=== PATIENT | male | born 1975 | race African-American/Black ===

== ENCOUNTER 2018-02-12 09:31 | Emergency (ER) | payer OTHER ==
[2018-02-12 10:20] LABS: #Basophils 0.1 thou/uL (0.0-0.2); #Eosinphils 0.1 thou/uL (0.0-0.7); #Monocytes 0.7 thou/uL (0.11-0.59); #Neutrophils 4.2 thou/uL (1.40-6.50); %Basophils 1.3 % (0.0-1.0); %Eosinophils 1.7 % (0.0-10.0); %Monocytes 9.2 % (0.0-10.0); %Neutrophils 59.8 % (42.0-75.0); Hemoglobin 14.8 g/dL (14.0-18.0); Mean Corpuscular Hemoglobin 29.3 pg (27.0-31.0); Mean Corpuscular Volume 88.9 fL (78.0-98.0); Mean Platelet Volume 7.7 fL (7.4-10.4); Platelet Count 231 thou/uL (130-400); RBC Distribution Width 12.5 % (11.5-14.5); Red Blood Cell (RBC) Count 5.05 mill/uL (4.70-6.10)
[2018-02-12] MEDS ORDERED: Metoprolol Tartrate 5 MG/5 ML VIAL ONE (10:23)
[2018-02-12] MEDS ORDERED: Nitroglycerin 2% Ointment 1 INCH/1 GM Packet ONE (10:23)
[2018-02-12 10:36] LABS: Anion Gap 15 mmol/L (10-20); BUN (Urea Nitrogen) 11 mg/dL (8.9-20.6); Calc. Creatinine Clearance 0 mL/min (70-130); Calcium 9.7 mg/dL (7.8-10.44); Carbon Dioxide 28 mmol/L (22-29); Chloride 101 mmol/L (98-107); Estimated GFR-MDRD 88; Glucose 115 mg/dL (70-105); Potassium 3.7 mmol/L (3.5-5.1); Sodium 140 mmol/L (136-145)
[2018-02-12 10:41] LABS: CKMB 1.1 ng/mL (0-6.6); Troponin I Less than 0.010 ng/mL (< 0.028)
[2018-02-12] MEDS ORDERED: Amlodipine 5 MG TAB ONE (10:54)
--- NOTE | 2018-02-12 11:17 | RAD ---
PORTABLE CHEST 1 VIEW: Date: 02/12/18 Time: 0959 hours HISTORY: Chest pain. FINDINGS: The heart size is normal. The lungs are well expanded without focal areas of consolidation, pneumotho races, or pleural effusions. There is no evidence of king pulmonary edema. IMPRESSION: No radiographic evidence of acute cardiopulmonary process. POS: [facility]
== END 2018-02-12 11:08 ==
LOC: MADERS 09:31
DX: I10 Essential (primary) hypertension (principal); F17.210 Nicotine dependence, cigarettes, uncomplicated; Z79.899 Other long term (current) drug therapy
CPT/HCPCS: 71045; 80048; 82553; 83880; 84484; 85025; 93005

== ENCOUNTER 2018-02-12 23:12 | Emergency (ER) | payer OTHER ==
[~2018-02-12 23:12] MED LIST: Sodium Chloride 0.9% 1,000 ML BAG ONE
[2018-02-12] MEDS ORDERED: Nitroglycerin 2% Ointment 1 INCH/1 GM Packet ONE (23:28)
[2018-02-12] MEDS ORDERED: Morphine 4 MG/ML VIAL ONE (23:40)
[2018-02-12 23:43] LABS: #Basophils 0.1 thou/uL (0.0-0.2); #Eosinphils 0.2 thou/uL (0.0-0.7); #Monocytes 0.9 thou/uL (0.11-0.59); #Neutrophils 5.9 thou/uL (1.40-6.50); %Eosinophils 1.5 % (0.0-10.0); %Monocytes 8.7 % (0.0-10.0); %Neutrophils 58.8 % (42.0-75.0); Hemoglobin 15.1 g/dL (14.0-18.0); Mean Corpuscular HGB CONC 33.8 g/dL (32.0-36.0); Mean Corpuscular Hemoglobin 29.8 pg (27.0-31.0); Mean Corpuscular Volume 88.3 fL (78.0-98.0); Mean Platelet Volume 7.9 fL (7.4-10.4); Platelet Count 234 thou/uL (130-400); RBC Distribution Width 12.4 % (11.5-14.5); Red Blood Cell (RBC) Count 5.06 mill/uL (4.70-6.10); White Blood Cell (WBC) Count 10.1 thou/uL (4.8-10.8)
[2018-02-13 00:02] LABS: Anion Gap 16 mmol/L (10-20); BUN (Urea Nitrogen) 9 mg/dL (8.9-20.6); Calc. Creatinine Clearance 0 mL/min (70-130); Carbon Dioxide 29 mmol/L (22-29); Chloride 100 mmol/L (98-107); Estimated GFR-MDRD Greater than 90; Glucose 93 mg/dL (70-105); Potassium 3.9 mmol/L (3.5-5.1); Sodium 141 mmol/L (136-145)
[2018-02-13 00:06] LABS: CKMB 1.1 ng/mL (0-6.6); Troponin I 0.011 ng/mL (< 0.028)
== END 2018-02-13 00:48 | disposition short-term general hospital (02) ==
LOC: MADERS 23:12
DX: R07.9 Chest pain, unspecified (principal); I10 Essential (primary) hypertension; F17.210 Nicotine dependence, cigarettes, uncomplicated; Z79.899 Other long term (current) drug therapy
CPT/HCPCS: 71045; 80048; 82553; 83880; 84484; 85025; 93005; 96361; 96374; J2270; J7050

== ENCOUNTER 2018-03-16 13:51 | Emergency (ER) | payer OTHER ==
[2018-03-16 14:10] LABS: #Basophils 0.1 thou/uL (0.0-0.2); #Eosinphils 0.2 thou/uL (0.0-0.7); #Lymphocytes 2.4 thou/uL (1.20-3.40); #Monocytes 0.5 thou/uL (0.11-0.59); %Basophils 1.2 % (0.0-1.0); %Eosinophils 2.9 % (0.0-10.0); %Lymphocytes 38.2 % (21.0-51.0); %Monocytes 8.4 % (0.0-10.0); %Neutrophils 49.3 % (42.0-75.0); Hemoglobin 13.8 g/dL (14.0-18.0); Mean Corpuscular HGB CONC 34.3 g/dL (32.0-36.0); Mean Corpuscular Hemoglobin 30.2 pg (27.0-31.0); Mean Corpuscular Volume 88.3 fL (78.0-98.0); Mean Platelet Volume 7.2 fL (7.4-10.4); Platelet Count 223 thou/uL (130-400); RBC Distribution Width 12.3 % (11.5-14.5); Red Blood Cell (RBC) Count 4.56 mill/uL (4.70-6.10); White Blood Cell (WBC) Count 6.2 thou/uL (4.8-10.8)
--- NOTE | 2018-03-16 14:21 | RAD ---
SINGLE VIEW OF THE CHEST: Comparison: 02-12-18 History: Chest pain. FINDINGS: Single view of the chest shows a normal sized cardiomediastinal silhouette. There is no evidence of c onsolidation, mass, or pleural effusion. The bones are unremarkable. IMPRESSION: No evidence of acute cardiopulmonary disease. POS: [facility]
[2018-03-16 14:27] LABS: ALT (SGPT) Less than 7 U/L (8-55); AST (SGOT) 11 U/L (5-34); Albumin 3.9 g/dL (3.5-5.0); Alkaline Phosphatase 105 U/L (40-150); Anion Gap 11 mmol/L (10-20); BUN (Urea Nitrogen) 16 mg/dL (8.9-20.6); Bilirubin, Total 0.2 mg/dL (0.2-1.2); Calc. Creatinine Clearance 0 mL/min (70-130); Calcium 9.1 mg/dL (7.8-10.44); Carbon Dioxide 35 mmol/L (22-29); Chloride 102 mmol/L (98-107); Estimated GFR-MDRD 85; Globulin 3.2 g/dL (2.4-3.5); Glucose 101 mg/dL (70-105); Potassium 3.5 mmol/L (3.5-5.1); Protein, Total 7.1 g/dL (6.0-8.3); Sodium 144 mmol/L (136-145)
[2018-03-16 17:44] LABS: CKMB 0.9 ng/mL (0-6.6); Troponin I Less than 0.010 ng/mL (< 0.028)
== END 2018-03-16 15:05 ==
LOC: MADERS 13:51
DX: R07.9 Chest pain, unspecified (principal); F17.210 Nicotine dependence, cigarettes, uncomplicated; Z79.899 Other long term (current) drug therapy
CPT/HCPCS: 36415; 71045; 80053; 82553; 83880; 84484; 85025; 93005

== ENCOUNTER 2018-05-21 22:14 | Emergency (ER) | payer OTHER ==
--- NOTE | 2018-05-21 23:21 | CT ---
BRAIN CT WITHOUT IV CONTRAST: 05/21/18 HISTORY: 42-year-old male with history of headache. No focal mass or midline shift. No acute hemorrhage. Sinuses and mastoids are clear. IMPRESSION: No acute intracranial process. No mass or bleed. POS: [facility]
[2018-05-21] MEDS ORDERED: Ketorolac Tromethamine 30 MG/ML VIAL ONE (23:53)
== END 2018-05-22 00:15 ==
LOC: MADERS 22:14
DX: S09.90XA Unspecified injury of head, initial encounter (principal); J06.9 Acute upper respiratory infection, unspecified; I10 Essential (primary) hypertension; F17.210 Nicotine dependence, cigarettes, uncomplicated; Z79.899 Other long term (current) drug therapy; W19.XXXA Unspecified fall, initial encounter
CPT/HCPCS: 70450; 93005; 96372; J1885